=== PATIENT | female | born 2005 | race Hispanic/Latino ===

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

== ENCOUNTER 2023-12-05 11:44 | Emergency (ER) | payer BC, OTHER, SELFPAY ==
[2023-12-05 12:37] LABS: SARS-CoV-2 E Target Positive; SARS-CoV-2 N2 Target Positive; SARS-CoV-2 NAA Rapid Test DETECTED (NotDetected); SARS-CoV-2 RdRP gene Positive
== END 2023-12-05 12:55 | disposition home or self-care (01) ==
LOC: NAV ERS 11:44
DX: U07.1 COVID-19 (principal); B34.9 Viral infection, unspecified
CPT/HCPCS: 87081; 87430; 99283; U0002

== ENCOUNTER 2024-04-26 13:29 | Emergency (ER) | payer OTHER, SELFPAY | END 2024-04-26 14:05 | disposition home or self-care (01) | LOC: NAV ERS 13:29 | DX: S10.96XA Insect bite of unspecified part of neck, initial encounter (principal); H92.01 Otalgia, right ear; R09.81 Nasal congestion | CPT/HCPCS: 99282 ==

== ENCOUNTER 2025-04-10 22:03 | Emergency (ER) | payer OTHER, SELFPAY ==
[2025-04-10] MEDS ORDERED: Acetaminophen 500 MG TAB ONE (22:15)
[2025-04-10] MEDS ORDERED: Ibuprofen 200 MG TAB ONE (23:08)
== END 2025-04-11 00:26 | disposition home or self-care (01) ==
LOC: NAV ERS 22:03
DX: B34.9 Viral infection, unspecified (principal)
CPT/HCPCS: 87428; 99283